=== PATIENT | male | born 1950 | race Two or more races ===

== ENCOUNTER 2019-09-21 13:33 | Emergency (ER) | payer BC, OTHER ==
[2019-09-21 13:44] VITALS: TEMP 99.1; BMI 31.9
[2019-09-21] MEDS ORDERED: CLINDAMYCIN HCL 150 MG CAPSULE (FP) PO ONE (14:18)
[2019-09-21] MEDS ORDERED: SODIUM CHLORIDE 0.9% 1000 ML INFUS.BAG IV ONE (14:19)
[2019-09-21] MEDS ORDERED: ACETAMINOPHEN 1000 MG/100 ML VIAL (NON FORMULARY) IVPB ONE (14:26)
[2019-09-21] MEDS ORDERED: FOLIC ACID 1 MG TABLET (FP) PO ONE (14:26)
[2019-09-21] MEDS ORDERED: METOCLOPRAMIDE HCL INJECTION 10 MG/2 ML VIAL IVPUSH ONE (14:26)
[2019-09-21] MEDS ORDERED: THIAMINE HCL 100 MG TABLET (FP) PO ONE (14:26)
--- NOTE | 2019-09-21 14:27 | PDOC ---
Documentation entered by Bernadine Dawkins SCRIBE, acting as scribe for Yesenia Love DO. Yesenia Love DO: This documentation has been prepared by the Juancho reynolds Maria, SCRIBE, under my direction and personally reviewed by me in its entirety. I confirm that the documentation accurately reflects all work, treatment, procedures, and medical decision making performed by me. History of Present Illness - General Chief Complaint: Edema Stated Complaint: RIGH LIP SWELLING AN DLEFT HAND SHAING Time Seen by Provider: 09/21/19 13:43 - History of Present Illness Initial Comments: 09/21/19 15:01 Patient is a 69 year old male with a significant PMH of Diabetes who presents to the Ed with 3 days of right upper lip swelling, 1 year of intermittent headache and left arm tremors. Pt states he had a pimple on his cheek and popped it, he denies using any new shaving products, eating any new foods or itchiness. Pt also ? of an intermittent headache for a year, he states that this headache begins when he gets upset and begins to tear from his left eye, along with tremors to his left hand. Pt states he his began to notice the tremors worsen when he is driving. He denies any loss of strength or sensation to his left arm. Patient states he has not seen his PCP in over a year for these symptoms. He denies LOC. He denies any recent fevers, chills, headache or dizziness. He denies any recent nausea, vomiting, diarrhea or constipation. He denies any recent chest pain, back pain or shortness of breath. He denies any recent travel. Allergies: NKDA Social history: Nonsmoker. 1 glass of alcohol daily. 09/21/19 15:05 Past History - Past Medical History Allergies/Adverse Reactions: Allergies Allergy/AdvReac Type Severity Reaction Status Date / Time No Known Allergies Allergy Verified 09/21/19 13:58 Home Medications: Ambulatory Orders Aspirin [ASA -] 81 mg PO DAILY 09/21/19 Atorvastatin Ca [Lipitor] 10 mg PO HS 09/21/19 Clindamycin [Cleocin -] 450 mg PO Q8H #90 capsule 09/21/19 metFORMIN HCL [Metformin HCl] 850 mg PO BID 09/21/19 COPD: No Diabetes: Yes Hypercholesterolemia: Yes - Psycho Social/Smoking Cessation Hx Smoking History: Never smoked Hx Alcohol Use: Yes (OCCASIONALLY) Drug/Substance Use Hx: No Review of Systems - Review of Systems Able to Perform ROS?: Yes Comments:: 09/21/19 15:02 GENERAL/CONSTITUTIONAL: No fever or chills. No weakness. HEAD, EYES, EARS, NOSE AND THROAT: No change in vision. No ear pain or discharge. No sore throat. GASTROINTESTINAL: No nausea, vomiting, diarrhea or constipation. GENITOURINARY: No dysuria, frequency, or change in urination. CARDIOVASCULAR: No chest pain or shortness of breath. RESPIRATORY: No cough, wheezing, or hemoptysis. MUSCULOSKELETAL: No joint or muscle swelling or pain. No neck or back pain. SKIN: +lip swelling. NEUROLOGIC: +headache. +left arm tremors. No vertigo, loss of consciousness, or change in strength. ENDOCRINE: No increased thirst. No abnormal weight change. HEMATOLOGIC/LYMPHATIC: No anemia, easy bleeding, or history of blood clots. ALLERGIC/IMMUNOLOGIC: No hives or skin allergy. *Physical Exam - Vital Signs Last Vital Signs Temp Pulse Resp BP Pulse Ox 99.1 F 82 19 141/83 98 09/21/19 13:34 09/21/19 13:34 09/21/19 13:34 09/21/19 13:34 09/21/19 13:34 - Physical Exam General Appearance: Yes: Nourished, Appropriately Dressed. No: Apparent Distress HEENT: positive: EOMI, Normal Voice, Pharynx Normal, Other (R infranare region with induration and mild erythema, top lip swelling, no fluctuance, ttp, mild warthm). negative: Nasal Congestion, Rhinorrhea Neck: positive: Supple Respiratory/Chest: positive: Lungs Clear, Normal Breath Sounds. negative: Respiratory Distress Cardiovascular: positive: Regular Rhythm, Regular Rate, S1, S2 Gastrointestinal/Abdominal: positive: Soft. 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 negative: Facial Droop, Numbness, Sensory Deficit Heart Score/ECG Review - ECG Intrepretation Comment:: 09/21/19 15:09 sinus at 76, nl axis, nl interval, no acute st/t wave findings ED Treatment Course - LABORATORY CBC & Chemistry Diagram: 09/21/19 14:50 09/21/19 14:50 - RADIOLOGY Radiology Studies Ordered: Category Date Time Status HEAD CT WITHOUT CONTRAST [CT] Stat CT Scan 09/21/19 14:17 Ordered CHEST PA & LAT [RAD] Stat Radiology 09/21/19 14:18 Ordered Medical Decision Making - Medical Decision Making 09/21/19 14:22 a/p: 69yo male with multiple complaints -upper lip swelling x 3 days = popped pimple a few days ago and has had swelling since, no fluctuance, no abscess, +indurated skin and warmth. no dental abscess or dental caries, no intraoral lesions -garcía x 1 year intermittently - neuro intact, will send for head ct -tremor L hand only, no asterixis again head ct -will send labs, ekg, cxr -will monitor and reassess -will start abx for lip infection 09/21/19 15:[address] neg cxr clear labs pending 09/21/19 15:27 no elevated wbc low magnesium will replace mag will monitor and reassess discussed labs and imaging pt states he is feeling better family at the bedside states he will call medicare monday and arrange for PMD follow up pt will also need neuro and ent follow up for facial cellulitis will dc with oral abx discussed stopping etoh use 09/21/19 16:04 pt feeling better answered all questions gave all precautions and reasons to return to the ED stable for dc to home Discharge - Discharge Information Problems reviewed: Yes Clinical Impression/Diagnosis: Facial cellulitis, Tremor of left hand Condition: Stable Disposition: HOME - Admission No - Additional Discharge Information Prescriptions: Clindamycin [Cleocin -] 450 mg PO Q8H #90 capsule - Follow up/Referral Referrals: Roque Lemus MD [Staff Physician] - Juan Cohen MD [Staff Physician] - Valentin Godwin MD [Staff Physician] - - Patient Discharge Instructions Patient Printed Discharge Instructions: DI for Cellulitis -- Adult, DI for Benign Essential Tremor Additional Instructions: Please stop drinking alcohol. Please apply warm compresses to the upper lip. Please take all antibiotics as prescribed. Please make an appointment to see the neurologist and the ENT physician. Please call your insurance company first thing monday morning to find a primary care provider. Please drink plenty of fluids. Please return to the ED with any further concerns or complaints. - Post Discharge Activity
[2019-09-21] MEDS ORDERED: CLINDAMYCIN HCL 150 MG CAPSULE (FP) ONE (14:59)
[2019-09-21] MEDS ORDERED: ACETAMINOPHEN INJECTION 100 ML IVPB ONE (15:00)
[2019-09-21] MEDS ORDERED: METOCLOPRAMIDE HCL INJECTION 10 MG/2 ML VIAL ONE (15:00)
[2019-09-21 15:05] LABS: BASO % 0.2 % (0-2.0); EOS % 2.2 % (0-4.5); HEMATOCRIT 40.1 % (35.4-49); HEMOGLOBIN 12.9 GM/dl (11.7-16.9); LYMPH % 15.4 % (8-40); MCH 27.8 pg (25.7-33.7); MCHC 32.3 g/dl (32.0-35.9); MEAN CELL VOLUME 86.2 fl (80-96); MEAN PLT VOLUME 7.7 fl (7.5-11.1); MONO % 7.9 % (3.8-10.2); NEUT % 74.3 % (42.8-82.8); PLATELET COUNT 115 K/MM3 (134-434); RBC 4.65 M/mm3 (4.00-5.60); RDW 12.1 % (11.9-15.9); WHITE BLOOD COUNT 6.1 K/mm3 (4.0-10.8)
[2019-09-21 15:12] LABS: ALBUMIN 4.1 g/dl (3.4-5.0); BILIRUBIN,TOTAL 0.4 mg/dl (0.2-1); CALCIUM 8.9 mg/dl (8.5-10); CREATININE 0.8 mg/dl (0.55-1.3); MAGNESIUM 1.6 mg/dL (1.8-2.4); TOT PROT 6.9 g/dl (6.4-8.2)
[2019-09-21] MEDS ORDERED: MAGNESIUM SULF 50% (8.12 MEQ/2 ML-1 GM VIAL) IVPB ONE (15:24)
[2019-09-21] MEDS ORDERED: MAGNESIUM SULF 50% (8.12 MEQ/2 ML-1 GM VIAL) ONE (15:26)
[2019-09-21 16:18] VITALS: BP 119/68; PULSE 78
--- NOTE | 2019-09-22 15:15 | EKG ---
Test Reason : Blood Pressure : / mmHG Vent. Rate : 076 BPM Atrial Rate : 076 BPM P-R Int : 150 ms QRS Dur : 084 ms QT Int : 374 ms P-R-T Axes : 033 029 050 degrees QTc Int : 420 ms NORMAL SINUS RHYTHM NONSPECIFIC T WAVE ABNORMALITY ABNORMAL ECG NO PREVIOUS ECGS AVAILABLE Confirmed by MD OBED, ELIZABETH ([id number]) on 09/22/2019 3:15:00 PM Referred By: CR SIMON Confirmed By:ELIZABETH CLAY MD
== END 2019-09-21 16:15 | disposition home or self-care (01) ==
LOC: FER 13:33
PROC: 3E0337Z Introduction of Electrolytic and Water Balance Substance into Peripheral Vein, Percutaneous Approach (ICD-10-PCS; principal; 2019-09-21)
PROC: 3E033NZ Introduction of Analgesics, Hypnotics, Sedatives into Peripheral Vein, Percutaneous Approach (ICD-10-PCS; 2019-09-21)
DX: L03.211 Cellulitis of face (principal); R25.1 Tremor, unspecified; E11.9 Type 2 diabetes mellitus without complications
CPT/HCPCS: 36415; 70450-TC; 71046-TC-FY; 80053; 82550; 83735; 84484; 85025; 93005; 99283-25; J0131; J7030